=== PATIENT | female | born 1955 | race Caucasian/White ===

== ENCOUNTER → 2017-01-21 | Outpatient (CLI) | payer BC ==
[~2017-01-21] MED LIST: DICL-201 PO
[2017-01-21 13:22] LABS: CHOLESTEROL/HDL RATIO 6.2
== END | disposition home or self-care (01) ==
LOC: C.LABMFLN 07:11
PROVIDERS: ATTEND Family Medicine
DX: E78.5 Hyperlipidemia, unspecified (principal)

== ENCOUNTER 2023-02-17 11:00 | Observation (INO) ==
--- NOTE | 2023-01-23 13:55 | PAT Medication Instructions ---
Medication Instructions Date of Service January 23, 2023 Home Medications Medication Instructions Recorded acetaminophen 500 mg tablet 1,000 mg PO BID PRN fever #100 tabs 10/22/21 (Tylenol Extra Strength) rosuvastatin 10 mg tablet 10 mg PO HS #90 tabs 07/30/22 diclofenac sodium 75 mg 75 mg PO BID PRN pain #60 tabs 09/08/22 tablet,delayed release Medication List: losartan 25 mg tablet 25 mg PO QAM acetaminophen 500 mg tablet (Tylenol Extra Strength) 1,000 mg PO BID PRN rosuvastatin 10 mg tablet 10 mg PO HS diclofenac sodium 75 mg tablet,delayed release 75 mg PO BID PRN pain diclofenac sodium 1 % topical gel 4 g topical QID PRN Pain MEDICATION INSTRUCTIONS: Continue as directed diclofenac sodium 1 % topical gel 4 g topical QID PRN Pain (do not use after bathing prior to surgery) ASK your surgeon for instructions diclofenac sodium 75 mg tablet,delayed release 75 mg PO BID PRN pain DO NOT take the morning of surgery losartan 25 mg tablet 25 mg PO QAM Take morning of surgery With a small sip of water, OTHERWISE NOTHING TO EAT OR DRINK AFTER MIDNIGHT: acetaminophen 500 mg tablet (Tylenol Extra Strength) 1,000 mg PO BID PRN (if n eeded) Take evening before surgery acetaminophen 500 mg tablet (Tylenol Extra Strength) 1,000 mg PO BID PRN (if needed) rosuvastatin 10 mg tablet 10 mg PO HS Other Notes If you have any questions please call us at [phone] or [phone] or [phone] or [phone]
--- NOTE | 2023-01-30 10:39 | Anesthesiology Consultation ---
Date of Service January 30, 2023 Assessment & Plan (1) Encounter for pre-operative examination: - awaiting signed [place] PCP office note 02/02/23. - Outpatient joint assessment: Patient is currently scheduled for inpatient pathway. If re-evaluated and patient/surgeon requests outpatient pathway, patient is acceptable candidate for outpatient joint program from anesthesia standpoint pending surgeon's office assessment of pt motivation/support/completion of same day joint program preop requirements. Chart Review Chart Review: Pending: Refer to Additional Notes / Consult section and Patient seen in Pre Admission Testing Teaching & Discussion Pre-Anesthesia Teaching/Discussion Notes: Instructed NPO after midnight before surgery, except medications with 15 cc of water. Medication instructions provided according to the PAT guidelines. History Surgery Operation Date: 02/17/23 08:50 Proposed Procedures p Right Total Knee Arthroplasty(Right) - Mohit Saucedo MD Height/Weight Height: 5 ft 6 in Weight: 97.5 kg Allergies Allergy/AdvReac Type Severity Reaction Status Date / Time No Known Allergies Allergy Verified 02/02/23 07:03 Medications Home Medications Medication Instructions Recorded Confirmed Last Taken acetaminophen 500 mg tablet 1,000 mg PO BID PRN fever #100 tabs 10/22/21 01/13/23 Unknown (Tylenol Extra Strength) diclofenac sodium 75 mg 75 mg PO BID PRN pain #60 tabs 09/08/22 01/13/23 Unknown tablet,delayed release diclofenac sodium 1 % topical gel 4 g topical QID PRN Pain 01/13/23 01/13/23 Unknown losartan 25 mg tablet 25 mg PO QAM 01/13/23 01/13/23 Unknown Past Medical History Medical History (Updated 01/30/23 @ 10:58 by Candy Maxwell PA-C) ASCUS of cervix with negative high risk HPV hx Aura ~6 years ago while working>all of the sudden she couldn't see and she went to the ER and had testing and scans and determined it was an aura w/out migraine GERD (gastroesophageal reflux disease) rare, stable per pt Hyperlipidemia Hypertension controlled, stable per pt Nausea after anesthesia denies needing scop patch Obesity (BMI 30-39.9) Sebaceous cyst under lt arm>no sx. necessary Patient denies h/o stroke, seizures, heart attack, heart failure, DM, blood clots/DVTs or blood transfusions. Exercise / Class Metabolic Activity III < 4 Walking/Shop/Light housework (denies chest discomfort or shortness of breath with usual activities) Past Family History Family History Grandfather (Paternal) Cancer Coronary heart disease Father CHF (congestive heart failure) Coronary heart disease Grandmother (Paternal) Coronary heart disease Past Surgical History Surgical History H/O arthroscopy of knee LT knee H/O section x2 Hx of colonoscopy Past Anesthesia History No Hx of Anesthesia Complications and No Family Hx of Anesthesia Complications History of PONV History of PONV (denies needing scop patch) and Hx of Motion Sickness Social History Smoking Status: Never smoker Do You Dip or Chew Tobacco: No Hx Alcohol Use: Yes alcohol intake frequency: other Alcohol Intake Frequency Comment: very rarely Hx Substance Use: No substance use type: does not use Review of Systems Snoring, denies witnessed apneas. Patient denies chest pain, shortness of breath, dyspnea on exertion, fever, chills, cough, wheezing, or palpitations. Physical Exam Vital Signs Vitals BP 139/81 P 78 TEMP 97.9 SP02 95% on RA RESP 18 Physical Patient resting comfortably in chair in no acute distress, alert and oriented, responding appropriately throughout visit Full cervical extension range of motion without pain TMD 3.5 finger breadths Mallampati Score 3 Dentition: one cap, denies chipped or loose teeth, crowns, implants or bridges Lungs: normal respiratory effort. Good air movement, clear throughout to auscultation, no adventitious breath sounds Cardiac: regular rate and rhythm, no murmurs noted Carotid arteries: negative bruit bilat Lab Results Anesthesia Preop Results Results Anesthesia Widget: WBC 8.25 K/ul (4.8-10.8) 01/30/23 Hgb 14.0 g/dl (12.0-16.0) 01/30/23 Hct 42.3 % (37.0-47.0) 01/30/23 Plt 268 K/uL (130-400) 01/30/23 Na 138 mmol/L (136-145) 01/30/23 K 4.0 mmol/L (3.5-5.1) 01/30/23 Cl 106 mmol/L (98-107) 01/30/23 CO2 25 mmol/L (21-32) 01/30/23 BUN 20 mg/dl (6-23) 01/30/23 Creat 0.75 mg/dl (0.6-1.2) 01/30/23 Glucose Level 117 mg/dl (70-99(Fasting)) H 01/30/23 PT 10.1 Seconds (9.0-12.0) 01/30/23 PTT 25.9 Seconds (21.0-31.0) 01/30/23 INR 0.9 (0.9-1.1) 01/30/23 Blood Type AB Positive 01/30/23 Antibody Screen NEGATIVE 01/30/23 Testing Electrocardiogram Date: 01/30/23 NSR, rate 76 bpm Chest X-Ray Date: 01/30/23 No acute process Other Testing Carotid doppler 06/07/19 < 50% stenosis ICAs bilat
[~2023-02-17 11:00] MED LIST changes: +ACETAMINOPHEN 500 MG TAB PO SCH; +BUPIVACAINE 0.5 % 5 MG/1 ML PF 10ML VIAL ONE; +BUPIVACAINE LIPOSOME/PF 266 MG, BUPIVACAINE/EPINEPHRINE 50 ML, SODIUM CHLORIDE 0.9% PF ... INFIL SCH; +CeleBREX 200 MG CAP PO SCH; -DICL-201 PO; +EPINEPHrine INJ 1 MG/ML AMP ONE; +FAMOTIDINE 20 MG TAB PO SCH; +LR 500ML BOLUS, THEN 15ML/HR IV SCH; +LR 60ML/HR IV SCH; +METOCLOPRAMIDE HCL 10 MG TABLET PO SCH; +ROPIVACAINE 0.5% 5 MG/ML 30 ML VIAL ONE; +Scopolamine 1 MG TDSY TD SCH; +TRANEXAMIC ACID 1,000 MG **IV Intra-op IV SCH; +ceFAZolin 2000MG 2,000 MG/15 ML SYR IV SCH; +dexAMETHasone**PF** 10 MG/ML VIAL IV SCH
--- NOTE | 2023-02-17 11:40 | History & Physical Bridge Note ---
Date of Service February 17, 2023 History & Physical Bridge Note I have examined the patient, reviewed the History & Physical and in the interval since the performance of the History & Physical I have noted the following changes of clinical significance: no changes noted
[2023-02-17] MEDS ORDERED: MIDAZOLAM HCL 1 MG/ML 2ML VIAL ONE (12:34)
[2023-02-17] MEDS ORDERED: LIDOCAINE 2% 2 ML VIAL/AMP(20MG/ML) INFIL ONE ×2 (12:34→14:59)
[2023-02-17] MEDS ORDERED: fentaNYL citrate PF 100 MCG/2 ML VIAL ONE (12:34)
[2023-02-17] MEDS ORDERED: PROPOFOL IV EMULSION 10 MG/ML 20 ML VIAL IV ONE (12:34)
[2023-02-17] MEDS ORDERED: SODIUM CHLORIDE 0.9% PF 50 ML VIAL ONE (13:47)
[2023-02-17] MEDS ORDERED: BUPIVACAINE/EPINEPHRINE 0.25% 1:200,000 30 ML VIAL ONE (13:47)
[2023-02-17] MEDS ORDERED: BUPIVACAINE LIPOSOME 1.3% 266 MG/20 ML VIAL ONE (13:48)
[2023-02-17] MEDS ORDERED: ACETAMINOPHEN 1000 MG/100 ML IV IV ONE (14:11)
[2023-02-17] MEDS ORDERED: ePHEDrine sulfate 50 MG/ML AMP IV PRN (14:25)
[2023-02-17] MEDS ORDERED: ATROPINE SULFATE 0.1 MG/ML 10ML SYR IV PRN (14:25)
[2023-02-17] MEDS ORDERED: ONDANSETRON INJ 2 MG/ML 2 ML VIAL ONE (14:59)
[2023-02-17] MEDS ORDERED: PHENYLEPHRINE HCL 10 MG/ML VIAL ONE (14:59)
[2023-02-17] MEDS ORDERED: SODIUM CHLORIDE 0.9% PF INJ 10 ML VIAL ONE (14:59)
[2023-02-17] MEDS ORDERED: ePHEDrine sulfate 50 MG/ML AMP ONE (14:59)
--- NOTE | 2023-02-17 16:24 | Operative Report ---
PG Post Operative Report Pre & Post Diagnosis Operation Date: 02/17/23 12:30 Pre-Op Diagnosis: Right Knee Advanced Degenerative Joint Disease Post-Op Diagnosis: Right Knee Advanced Degenerative Joint Disease I identified the patient and participated in the time-out.: Yes Procedure Operation Date: 02/17/23 12:30 Actual Procedures p Right Total Knee Arthroplasty(Right) - Mohit Saucedo MD Surgeon Mohit Saucedo MD Master Control Supervisor None Estimated Blood Loss 50 Findings Consistent with Post-Op Diagnosis Operative findings with advanced right knee DJD. Ext extensive grade 4 [id number] disease of the anteromedial compartment with eburnation and osteophyte formation. She had a varus deformity to her knee. Moderate-sized joint effusion. Specimens Right knee sent for pathology Anesthesia Type Spinal MAC Complications none Disposition Accompanied Patient To Recovery: No Indications Patient is a 67-year-old female said a long history of bilateral knee pain discomfort the right side being a little bit worse than the left. She been through extensive conservative treatment over the years with became less successful. X-rays show advanced knee arthritis in both knees. She elected proceed with right total knee replacement. Description of Procedure Operative implants consist of: 1 Biomet Vanguard size 65 right posterior stabilized femoral component. 2. Biomet size 71 tibial tray. 3. 14 mm posterior stabilized polyethylene insert. 4. 31 x 8 all poly patella. The patient was taken to the operating, identified, and placed on the operating table supine position. All contractors were appropriately padded. IV antibiotics arrived by anesthesia team. A spinal anesthetic and abductor canal block had provided in the holding area. More catheter was placed in sterile fashion. Right thigh tent was then placed in the right lower extremities then prepped and draped in usual sterile fashion. The right leg was elevated and exsanguinated with use of an Esmarch and the turn was placed at 3 mmHg. An anterior approach of the right knee was then performed through a longitudinal incision centered over the patella. Sharp dissection was carried through subcutaneous tissue down the extensor mechanism. A medial parapatellar arthrotomy incision was made. Some subperiosteal dissection was carried out medially. The fat pad was resected from Neath patella tendon. Lateral patellofemoral ligament was released. Patella was subluxated laterally. The knee was flexed. The osteophytes were taken on distal femur. The ACL and PCL were then released from distal femur and the tibia subluxated anteriorly. The external tibial alignment jig was then placed in the interface the tibia and adjusted 14 mm medially. Proximal tibial cut was made remove about a millimeter or 2 of bone from most deficient aspect the medial tibial plateau. Some osteophytes taken off medial and posterior medially. The tibia sized to a size 71. Attention drawn to the femur. The distal femur was entered with a sharp drill. Intramedullary canal was suction. A right 5 degree valgus cutting guide was placed. Distal femoral cutting block was pinned in place. Distal femoral cut was made to take an additional 3 mm bone off distal femur. This did take a fairly large piece of bone distally. The femur was then sized to a size 65. The AP cutting block was pinned parallel to the epicondylar axis which was 4 degrees of external rotation. The anterior cut, anterior chamfer, posterior cut, posterior chamfer cuts were made. The box cutting guide was placed in just slight lateral and the box cut was made. The knee was flexed. The remnants of the medial and lateral menisci were excised. The osteophyte taken off the posterior aspect the femur. A trial femoral component was placed. The tibial tray was pinned in maximum external rotation and the drill and stem punch were used to create defect in proximal tibia for the tibial tray. The knee was then trialed. 14 mm insert fit most appropriately. We will still just a little bit loose in extension but fairly snug in flexion. Attention drawn the patella. The patella was cleaned of all soft tissues. Patella thickness measured 20 mm in thickness was cut down to 13. Was sized to a size 31 patella. The lug holes were drilled for 31 patella. The lateral osteophytes removed. Patella button was placed. Knee was taken through range of motion and the patella tracked nicely with no thumbs test. Attention drawn to place the permanent components. Nupathe all trial components were removed. Bone plug was placed in the distal femur limit blood loss. Double batch Palacos G cement was mixed. Biomet Vanguard size 65 right posterior stabilized femoral component, a size 71 tibial tray, 14 mm posterior stabilized polyethylene insert, and a 31 x 8 all poly patella then cemented in place. Knee was brought out into full extension till cement hardened. Final cement check was then performed. Pericapsular tissues were injected with total of 100 cc of combination of 20 of Exparel, 30 cc normal saline, 50 cc of quarter percent Marcaine with epinephrine. Patient did receive 1 g tranexamic acid. The tourniquet was then let down for final tourniquet time of 63 minutes. Hemostasis was assured with cautery. The extensor mechanism then closed with combination 1 PDS suture #1 Vicryl suture in [id number] fashion. Extensor mechanism checked found intact and subcutaneous tissue then closed with 2 Dexon suture in a buried interrupted fashion skin was closed skin pamella. Leg was then cleaned and dried and a sterile dressing was Xeroform, 4 fours, sterile cast padding, Ag bandage were applied. Patient then transferred to the recovery room in stable condition. Patient tolerated procedure well and there were no complications. I attest to the content of the Intraoperative Record and any orders documented therein. Any exceptions are noted below.
--- NOTE | 2023-02-17 16:46 | XRay Report ---
XR knee RT 1 or 2V routine CLINICAL HISTORY: Postoperative evaluation. COMPARISON: Knee radiographs January 30, 2023. FINDINGS: Alignment of the total right knee arthroplasty is anatomic. There is no periprosthetic fra cture or unexpected radiopaque foreign body. There are skin pamella. IMPRESSION: Expected findings following total right knee arthroplasty. ACT 112: Negative or not required by law. Electronically signed by: Lionel Scales M.D. 02/17/2023 4:45 PM
--- NOTE | 2023-02-17 16:52 | Anesthesiology Progress Note ---
Date of Service February 17, 2023 Anesthesia Post Procedure Vital Signs Vital Signs: Temp Pulse Resp BP BP Pulse Ox O2 Del Method 02/17/23 16:50 98 H 19 130/68 98 Room Air 02/17/23 16:40 97 H 15 127/63 94 Room Air 02/17/23 16:30 101 H 21 129/64 95 Room Air 02/17/23 16:20 101 H 14 109/77 95 Oxymask 02/17/23 16:11 36.6 C 101 H 21 107/47 L 95 Oxymask 02/17/23 11:38 37.0 C 92 H 18 160/84 H 95 Room Air O2 Flow Rate 02/17/23 16:50 02/17/23 16:40 02/17/23 16:30 02/17/23 16:20 3 02/17/23 16:11 3 02/17/23 11:38 Pain Intensity Right Knee: Pain Intensity: 0 Transfer of Care Handoff Completed per policy Notes Mental Status: alert / awake / arousable and participated in evaluation Patient Amnestic to Procedure: Yes Nausea / Vomiting: adequately controlled Pain: adequately controlled Airway Patency, RR, SpO2: stable & adequate BP & HR: stable & adequate Hydration State: stable & adequate Neuraxial Anesthesia: was administered and sensory block is resolving Anesthetic Complications: no major complications apparent and Pt Satisfied with anesthetic care
[2023-02-17] MEDS ORDERED: ONDANSETRON INJ 2 MG/ML 2 ML VIAL IV PRN (17:40)
[2023-02-17] MEDS ORDERED: NALOXONE HCL 0.4 MG/1 ML VIAL/CARP IV PRN (17:40)
[2023-02-17] MEDS ORDERED: ALUMINUM/MAGNESIUM SUSP 30 ML UDC PO PRN (17:40)
[2023-02-17] MEDS ORDERED: METOCLOPRAMIDE HCL INJ 5 MG/ML 2 ML VIAL IV PRN (17:40)
[2023-02-17] MEDS ORDERED: MAGNESIUM HYDROXIDE SUSP 30 ML UDC PO PRN (17:40)
[2023-02-17] MEDS ORDERED: bisacodyL 10 MG SUPP PR PRN (17:40)
[2023-02-17] MEDS ORDERED: HYDROmorphone INJ 0.5 MG/0.5 ML SYR IV PRN (17:40)
[2023-02-17] MEDS: Scopolamine CHECK PATCH PLACEMENT SCH (18:05)
[2023-02-17] MEDS: SODIUM CHLORIDE 0.9% 1,000 ML IV SCH (18:05)
[2023-02-17] MEDS: KETOROLAC TROMETHAMINE 15 MG/ML VIAL IV SCH (19:47)
[2023-02-17] MEDS: ASCORBIC ACID 500 MG TAB PO SCH (19:48)
[2023-02-17] MEDS: ASPIRIN 81 MG ECTAB PO SCH (19:48)
[2023-02-17] MEDS: ACETAMINOPHEN 500 MG TAB PO SCH (19:48)
[2023-02-17] MEDS: SENNA 8.6 MG TAB PO SCH (19:49)
[2023-02-17] MEDS: DOCUSATE SODIUM 100 MG CAP PO SCH (19:49)
[2023-02-17] MEDS ORDERED: SENNA 8.6 MG TAB PO SCH (21:00)
[2023-02-17] MEDS: ceFAZolin 2000MG 2,000 MG/15 ML SYR IV SCH (21:26)
[2023-02-17] MEDS ORDERED: TRANEXAMIC ACID / 0.7% NACL 1,000 MG/100 ML BAG IV SCH (22:15)
[2023-02-18] MEDS: KETOROLAC TROMETHAMINE 15 MG/ML VIAL IV SCH ×2 (02:07→07:48)
[2023-02-18] MEDS: oxyCODONE HCL IR 5 MG TAB (IMMEDIATE RELEASE) PO PRN ×2 (02:08→05:53)
[2023-02-18] MEDS: Scopolamine CHECK PATCH PLACEMENT SCH ×2 (02:10→07:47)
[2023-02-18] MEDS: SODIUM CHLORIDE 0.9% 1,000 ML IV SCH (04:24)
[2023-02-18] MEDS: ceFAZolin 2000MG 2,000 MG/15 ML SYR IV SCH (05:53)
[2023-02-18] MEDS: ACETAMINOPHEN 500 MG TAB PO SCH (07:48)
[2023-02-18] MEDS: DOCUSATE SODIUM 100 MG CAP PO SCH (07:50)
[2023-02-18] MEDS: ASPIRIN 81 MG ECTAB PO SCH (07:50)
[2023-02-18] MEDS: ASCORBIC ACID 500 MG TAB PO SCH (07:50)
[2023-02-18] MEDS: SENNA 8.6 MG TAB PO SCH (07:51)
[2023-02-18] MEDS ORDERED: dexAMETHasone 10 MG in SYRINGE 0 ML IV SCH (08:00)
[2023-02-18 08:35] LABS: Hematocrit (blood only) 35.9 % (37.0-47.0); Hemoglobin 11.6 g/dl (12.0-16.0); Mean Corpuscular Hemoglobin 28.3 pg (25.0-34.0); Mean Corpuscular Hgb Conc 32.3 g/dL (32.0-36.0); Mean Corpuscular Volume 87.6 fL (80.0-100.0); Mean Platelet Volume 9.4 fL (9.4-12.4); Platelet Count 223 K/uL (130-400); RDW Coefficient of Variation 13.7 % (11.5-14.5); RDW Standard Deviation 43.9 fL (36.4-46.3); White Blood Count 11.74 K/ul (4.8-10.8)
[2023-02-18 09:00] LABS: BUN Creatinine Ratio 28.1 (10-20); Calcium 8.5 mg/dl (8.6-10.3); Creatinine Clr Calc Pharmacy 98.8 ml/min; Est GFR (African American) 106.3 ml/min; Est GFR (Non-African American) 91.7 ml/min; Potassium 4.1 mmol/L (3.5-5.1)
[2023-02-18] MEDS ORDERED: LOSARTAN POTASSIUM 25 MG TAB PO SCH (09:00)
[2023-02-18] MEDS ORDERED: MULTIVITAMIN TAB PO SCH (09:00)
--- NOTE | 2023-02-18 13:05 | Surgery Progress Note ---
Date of Service February 18, 2023 Assessment & Plan (1) Status post right knee replacement: Plan: 67-year-old female postop day 1 from right knee replacement doing pretty well. She is having some pain but manageable. No chest pain or shortness of breath. She is neurologically intact. Plan: 1. DVT prophylaxis including thigh-high teds, SCDs, aspirin twice a day. 2. PT OT. Weight-bear as tolerated right total knee protocol. 3. Pain control doing okay with current pain regimen. 4. Disposition plan to discharge to home with some home health today. Admission and Anticipated Discharge Date Admission Date: February 17, 2023 Subjective 67-year-old female postop day 1 from right knee replacement. She is doing pretty well. Having some pain but manageable. No chest pain or shortness of breath. Not feeling dizzy or lightheaded. She is hoping to go home today. Physical Exam 2 Physical Exam: Physical nation was a pleasant middle-age female. She was up walking with her walker when I visited her's afternoon. Examination of the right leg reveals dressing clean dry and intact. She can dorsiflex and plantarflex her foot appropriately. She is neurologically intact. Respiratory: normal respiratory effort, lungs clear to auscultation Cardiovascular: RRR, no murmur, no edema Gastrointestinal (Abdomen): normal bowel sounds, soft, nontender, no hepatosplenomegaly Results & Data Vital Signs (Past 12 Hours) Vital Signs Temp Pulse Resp BP Pulse Ox O2 Del Method 02/18/23 11:42 36.4 C L 69 18 124/73 96 02/18/23 07:09 36.4 C L 69 18 124/73 96 Room Air 02/18/23 02:30 36.5 C 70 16 125/79 95 Room Air Laboratory Results Hemoglobin is 11.6. Hematocrit is 35.9. Electrolytes are stable. PG Care Time/CCT Total # of Minutes Spent Total Time Spent with Patient: Total time spent is greater than 50% in coordination of care (as documented) at patient's floor/unit and/or counseling patient: Coding Level of Care Code 02784 Post Operative Follow-Up Diagnoses Status post right knee replacement Z96.651
== END 2023-02-18 12:22 | disposition home health service (06) ==
LOC: 3N 11:00 → ASU 11:00